=== PATIENT | male | born 1975 | race Caucasian/White ===

== ENCOUNTER 2016-06-08 03:22 | Emergency (ER) | payer MEDICAID ==
[~2016-06-08] VITALS: Ht 175.3 cm; Wt 85.0 kg
[~2016-06-08 03:22] MED LIST: AZIT250T94 PO; ERYT1OIN6 LEFT EYE; IBUP800T25 PO
[2016-06-08 03:28] VITALS: Ht 175.3 cm; Wt 85.0 kg
[2016-06-08] MEDS ORDERED: KETOROLAC 60 MG INJ IM STA (03:55)
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
--- NOTE | 2016-06-08 04:34 | RADRPT ---
PROCEDURE: XR Femur. CLINICAL INDICATION: Trauma TECHNIQUE: Two views of the right femur were performed. COMPARISON: No pertinent prior examinations were submitted for comparison. FINDINGS: There is normal bone mineralization.There is no acute fracture or dislocation.No osseous lesion is i dentified. There is no soft tissue swelling. IMPRESSION: No acute fracture or dislocation. RPTAT: HIKT .Jerry Ge MD, MD Date Time Electronically viewed and signed by .Jerry Ge MD, on 06/08/2016 04:34 .T/
[2016-06-08] MEDS ORDERED: HYDR-906 PO (04:46)
[2016-06-08] MEDS ORDERED: IBUP-1542 PO (04:46)
== END 2016-06-08 04:54 | disposition home or self-care (01) ==
LOC: FTE 03:22
DX: S80.11XA Contusion of right lower leg, initial encounter (principal); W51.XXXA Accidental striking against or bumped into by another person, initial encounter; Y92.9 Unspecified place or not applicable
CPT/HCPCS: 73550; 96372; J1885; Z7502

== ENCOUNTER 2017-10-13 01:27 | Emergency (ER) | END 2017-10-13 07:10 | disposition home or self-care (01) ==